=== PATIENT | female | born 1960 | race Caucasian/White ===

== ENCOUNTER 2018-05-06 17:34 | Emergency (ER) | payer SELFPAY ==
[~2018-05-06] VITALS: Ht 160 cm; Wt 70.3 kg
[2018-05-06 17:34] VITALS: BP_SYST 154
== END 2018-05-06 18:02 | disposition home or self-care (01) ==
LOC: SED 17:34
DX: M54.2 Cervicalgia (principal); M54.9 Dorsalgia, unspecified; R03.0 Elevated blood-pressure reading, without diagnosis of hypertension
CPT/HCPCS: 99283